=== PATIENT | female | born 1995 | race Caucasian/White ===

== ENCOUNTER 2016-10-28 22:36 | Emergency (ER) | payer BC, MEDICAID ==
[2016-10-29] MEDS ORDERED: NORMAL SALINE 1000 ML 1,000 ML IV ONE (01:35)
[2016-10-29] MEDS ORDERED: ONDANSETRON HCL INJ/PF 4 MG/2 ML SDV IV ONE (01:35)
--- NOTE | 2016-10-29 01:37 | ER Document Report ---
ED GI/ - General Chief Complaint: Nausea/Vomiting Stated Complaint: VOMITING,FEVER Time Seen by Provider: 10/29/16 01:30 Notes: Patient is a 21-year-old female comes emergency department for chief complaint of generalized abdominal pain and about 5 episodes of vomiting. She denies fever, flank pain, she had a normal bowel movement yesterday, she denies any sick contacts, suspicious foods, or recent antibiotics. She denies any surgeries. LMP within the past 2 weeks. She denies dysuria, vaginal discharge. No obvious sick contacts. No daily medications. TRAVEL OUTSIDE OF THE [place] IN LAST 30 DAYS: No - Related Data Allergies/Adverse Reactions: No Known Allergies Allergy (Verified 01/09/15 17:39) Past Medical History - General Information source: Patient - Social History Smoking Status: Never Smoker Frequency of alcohol use: None Drug Abuse: None Lives with: Family Family History: Arthritis, CAD, DM, Hyperlipidemia, Hypertension, Thyroid Disfunction. denies: CVA, Malignancy Patient has suicidal ideation: No Patient has homicidal ideation: No - Medical History Medical History: Negative Renal/ Medical History: Denies: Hx Peritoneal Dialysis Musculoskeltal Medical History: Reports Hx Arthritis, Reports Hx Musculoskeletal Deformity, Reports Hx Musculoskeletal Trauma - facial bone Skin Medical History: Reports Hx Eczema Traumatic Medical History: Reports: Hx Fractures - facial bone Surgical Hx: Negative - Immunizations Immunizations up to date: Yes Hx Diphtheria, Pertussis, Tetanus Vaccination: Yes - 2007 Review of Systems - Review of Systems Constitutional: No symptoms reported EENT: No symptoms reported Cardiovascular: No symptoms reported Respiratory: No symptoms reported Gastrointestinal: See HPI Genitourinary: No symptoms reported Female Genitourinary: No symptoms reported Musculoskeletal: No symptoms reported Skin: No symptoms reported Hematologic/Lymphatic: No symptoms reported Neurological/Psychological: No symptoms reported Physical Exam - Vital signs Vitals: Temp Pulse Resp BP Pulse Ox 99.7 F 87 18 134/76 H 98 10/28/16 22:38 10/28/16 22:38 10/28/16 22:38 10/28/16 22:38 10/28/16 22:38 Interpretation: Normal - General General appearance: Appears well, Alert In distress: None - Patient alert and well-appearing on examination - HEENT Head: Normocephalic, Atraumatic Eyes: Normal Pupils: PERRL - Respiratory Respiratory status: No respiratory distress Chest status: Nontender Breath sounds: Normal Chest palpation: Normal - Cardiovascular Rhythm: Regular Heart sounds: Normal auscultation Murmur: No - Abdominal Inspection: Normal Distension: No distension Bowel sounds: Normal Tenderness: Tender - Mild generalized abdominal tenderness, slightly worse in the left lower quadrant, however no guarding, rigidity, rebound tenderness. Organomegaly: No organomegaly - Back Back: Normal, Nontender. No: Tender, CVA tenderness - Extremities General upper extremity: Normal inspection, Nontender, Normal color, Normal ROM , Normal temperature General lower extremity: Normal inspection, Nontender, Normal color, Normal ROM , Normal temperature, Normal weight bearing. No: Russell's sign - Neurological Neuro grossly intact: Yes Cognition: Normal Orientation: AAOx4 [place] Coma Scale Eye Opening: Spontaneous [place] Coma Scale Verbal: Oriented [place] Coma Scale Motor: Obeys Commands [place] Coma Scale Total: 15 Speech: Normal Motor strength normal: LUE, RUE, LLE, RLE Sensory: Normal - Psychological Associated symptoms: Normal affect, Normal mood - Skin Skin Temperature: Warm Skin Moisture: Dry Skin Color: Normal Course - Re-evaluation Re-evalutation: Patient, benign abdominal exam, after IV fluids and Zofran patient denied any symptoms and states she felt excellent. She states she wants to go home. CBC shows mild leukocytosis with no shift, chemistry unremarkable, urine unremarkable, hCG negative. Clinical picture is most consistent with a viral gastroenteritis, no evidence of acute abdomen at this time. Provided with Zofran, discussed return precautions in detail, patient states understanding and agreement - Vital Signs Vital signs: Temp Pulse Resp BP Pulse Ox 98.1 F 88 16 111/54 L 100 10/29/16 04:18 10/29/16 04:18 10/29/16 04:18 10/29/16 04:18 10/29/16 04:18 - Laboratory Result Diagrams: 10/29/16 02:00 10/29/16 02:00 Laboratory results interpreted by me: 10/29/16 10/29/16 10/29/16 02:00 02:00 02:00 WBC 10.8 H BUN 6 L Urine Urobilinogen 4.0 H Discharge - Discharge Clinical Impression: Nausea and vomiting Qualifiers: Vomiting type: unspecified Vomiting Intractability: non-intractable Qualified Code(s): R11.2 - Nausea with vomiting, unspecified Condition: Stable Disposition: HOME, SELF-CARE Additional Instructions: Workup, examination, and symptoms are nonspecific, no concerning abnormalities are found, this is probably viral and should resolve on its own. Take the nausea medication as prescribed, start with bland food, consider Pepcid or similar medication [id number] to help settle stomach. Follow-up with primary care. Return to emergency department for any concerning or worsening symptoms including under controlled vomiting, fever, severe abdominal pain, or any other concerning symptoms. Prescriptions: Ondansetron [Zofran Odt 4 mg Tablet] 1 - 2 tab PO Q4H PRN #20 tab.rapdis PRN Reason: For Nausea/Vomiting Forms: Return to Work
[2016-10-29 02:19] LABS: ABSOLUTE EOSINOPHILS # (AUTO) 0.2 10^3/uL (0.0-0.6); ABSOLUTE MONOCYTES (AUTO) 0.9 10^3/uL (0.1-1.4); ABSOLUTE NEUT (AUTO) 7.7 10^3/uL (1.7-8.2); BASOPHILS % (AUTO) 0.3 % (0-2); EOSINOPHILS % (AUTO) 1.4 % (0-6); HEMATOCRIT 41.6 % (36.0-47.0); HGB HCT DIFFERENCE 0.4; LYMPHOCYTES % (AUTO) 18.8 % (13-45); MEAN CORPUSCULAR HGB CONC 33.6 g/dL (32.0-36.0); MEAN CORPUSCULAR VOLUME 86 fl (80-97); MONOCYTES % (AUTO) 8.5 % (3-13); RED BLOOD COUNT 4.81 10^6/uL (3.72-5.28); RED CELL DISTRIBUTION WIDTH 13.2 % (11.5-14.0); WHITE BLOOD COUNT 10.8 10^3/uL (4.0-10.5)
[2016-10-29 02:22] LABS: APPEARANCE,URINE CLEAR; BILIRUBIN,URINE NEGATIVE (NEGATIVE); GLUCOSE, URINE NEGATIVE (NEGATIVE); KETONES,URINE NEGATIVE (NEGATIVE); LEUKOCYTE ESTERASE,URINE NEGATIVE (NEGATIVE); NITRITE,URINE NEGATIVE (NEGATIVE); PROTEIN,URINE NEGATIVE (NEGATIVE); URINE SPECIFIC GRAVITY 1.013
[2016-10-29 02:25] LABS: ALANINE AMINOTRANSFERASE 33 U/L (9-52); ALBUMIN 4.5 g/dL (3.5-5.0); ALKALINE PHOSPHATASE 96 U/L (38-126); ANION GAP 12 (5-19); ASPARTATE AMINO TRANSFERASE 18 U/L (14-36); BILIRUBIN,DIRECT 0.3 mg/dL (0.0-0.4); BILIRUBIN,TOTAL 0.5 mg/dL (0.2-1.3); BLOOD UREA NITROGEN 6 mg/dL (7-20); CALCIUM 9.6 mg/dL (8.4-10.2); CARBON DIOXIDE 25 mmol/L (22-30); CHLORIDE 103 mmol/L (98-107); CREATININE RESULT 0.62 mg/dL (0.52-1.25); GLUCOSE 98 mg/dL (75-110); LIPASE 35.1 U/L (23-300); POTASSIUM 4.1 mmol/L (3.6-5.0); TOTAL PROTEIN 8.1 g/dL (6.3-8.2)
[2016-10-29] MEDS ORDERED: ONDANSETRON ODT 4 MG TAB (6 TAB/DSPK) PO PRN (04:14)
[2016-10-29 04:29] VITALS: BP 111/54
== END 2016-10-29 04:31 | disposition home or self-care (01) ==
LOC: ER 22:36
DX: R11.2 Nausea with vomiting, unspecified (principal); R10.84 Generalized abdominal pain
CPT/HCPCS: 99283; 96361; 96374; 36415; 83690; 85025; 81025; 80053; 81001; J2405; J7030

== ENCOUNTER 2016-12-18 10:54 | Emergency (ER) | payer OTHER, BC ==
--- NOTE | 2016-12-18 11:37 | ER Document Report ---
HPI - HPI Patient complains to provider of: right foot injury Pain Level: 5 Context: Patient is a 21-year-old female comes emergency department for chief complaint of right foot pain. 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 She has fractured the same foot in the past. She denies any other injuries. - REPRODUCTIVE LMP: November 20 Reproductive: DENIES: : - DERM Skin Color: Normal Past Medical History - General Information source: Patient - Social History Smoking Status: Never Smoker Frequency of alcohol use: None Drug Abuse: None Lives with: Family Family History: Arthritis, CAD, DM, Hyperlipidemia, Hypertension, Thyroid Disfunction. denies: CVA, Malignancy Renal/ Medical History: Denies: Hx Peritoneal Dialysis Musculoskeltal Medical History: Reports Hx Arthritis, Reports Hx Musculoskeletal Deformity, Reports Hx Musculoskeletal Trauma - facial bone Skin Medical History: Reports Hx Eczema Traumatic Medical History: Reports: Hx Fractures - facial bone - Immunizations Immunizations up to date: Yes Hx Diphtheria, Pertussis, Tetanus Vaccination: Yes - 2007 Vertical Provider Document - CONSTITUTIONAL General Appearance: WD/WN, No Apparent Distress - INFECTION CONTROL TRAVEL OUTSIDE OF THE [place] IN LAST 30 DAYS: No - HEENT HEENT: Atraumatic, Normocephalic - NECK Neck: Normal Inspection - RESPIRATORY Respiratory: Breath Sounds Normal, No Respiratory Distress O2 Sat by Pulse Oximetry: 99 - CARDIOVASCULAR Cardiovascular: Regular Rate, Regular Rhythm - GI/ABDOMEN Gastrointestinal: Abdomen Soft, Abdomen Non-Tender - BACK Back: Normal Inspection - MUSCULOSKELETAL/EXTREMETIES Musculoskeletal/Extremeties: Tender - Patient tender to the dorsal aspect of the mid right foot. No swelling or ecchymosis noted. Ankle, leg, knee exam unremarkable. Normal capillary refill and sensation. Normal range of motion of the toes and ankle. Course - Vital Signs Vital signs: Temp Pulse Resp BP Pulse Ox 98.3 F 64 14 127/57 H 99 12/18/16 11:01 12/18/16 11:01 12/18/16 11:01 12/18/16 11:01 12/18/16 11:01 - Diagnostic Test Radiology reviewed: Image reviewed, Reports reviewed Discharge - Discharge Clinical Impression: Right foot injury Qualifiers: Encounter type: initial encounter Qualified Code(s): S99.921A - Unspecified injury of right foot, initial encounter Condition: Stable Disposition: HOME, SELF-CARE Additional Instructions: Examination is consistent with soft tissue injury, no fractures are seen. I recommend using the crutches over the next 1-2 days, elevate your foot, apply ice to the area 3-4 times a day for 10-15 minutes, and to take the anti- inflammatory ibuprofen. Follow-up with primary care. Return to the emergency department for any concerning symptoms including severe swelling. Prescriptions: Ibuprofen [Motrin 600 mg Tablet] 600 mg PO Q6HP PRN #24 tablet PRN Reason: Forms: Return to Work
--- NOTE | 2016-12-18 12:17 | RADIOLOGY REPORT (SQ) ---
EXAM DESCRIPTION: FOOT RIGHT COMPLETE COMPLETED DATE/TIME: 12/18/2016 11:58 am REASON FOR STUDY: dropped plates on foot, pain COMPARISON: 12/06/2015 NUMBER OF VIEWS: Three views. TECHNIQUE: AP, lateral and oblique radiographic images acquired of the right foot. LIMITATIONS: None. FINDINGS: MINERALIZATION: Normal. BONES: No acute fracture or dislocation. No worrisome bone lesions. JOINTS: No effusions. SOFT TISSUES: No soft tissue swelling. No foreign body. OTHER: No other significant finding. IMPRESSION: NO RADIOGRAPHIC EVIDENCE OF ACUTE INJURY. NO SIGNIFICANT CHANGE FROM PRIOR STUDY. TECHNICAL DOCUMENTATION: JOB ID: [id number] [employer]- All Rights Reserved
[2016-12-18 12:38] VITALS: BP 116/67
== END 2016-12-18 12:38 | disposition home or self-care (01) ==
LOC: ER 10:54
DX: S99.921A Unspecified injury of right foot, initial encounter (principal); W20.8XXA Other cause of strike by thrown, projected or falling object, initial encounter
CPT/HCPCS: 99283

== ENCOUNTER 2017-12-04 18:10 | Emergency (ER) | payer BC, OTHER ==
[2017-12-04 18:21] VITALS: BP 120/57
[2017-12-04] MEDS ORDERED: FAMOTIDINE 20 MG TABLET PO ONE (19:25)
[2017-12-04] MEDS ORDERED: DIPHENHYDRAMINE HCL 25 MG CAPSULE PO ONE (19:25)
[2017-12-04] MEDS ORDERED: PREDNISONE 20 MG TABLET PO ONE (19:25)
--- NOTE | 2017-12-04 19:26 | ER Document Report ---
HPI - HPI Patient complains to provider of: Hives, eyelid swelling Onset: Other - 5 PM Onset/Duration: Persistent Quality of pain: Burning Pain Level: 4 Context: Patient states that she did wear new eye makeup today. Patient reports that around 5 PM she developed bilateral eyelid burning and swelling. Patient states she then developed hives to her body. Patient did take Benadryl tablet when symptoms started and states that the hives have since resolved although she continues to have eyelid burning and swelling. Patient denies any difficulty breathing or swallowing. Associated Symptoms: Other - Swelling, skin rash Exacerbated by: Denies Relieved by: Denies Similar symptoms previously: No Recently seen / treated by doctor: No - ROS ROS below otherwise negative: Yes Systems Reviewed and Negative: Yes All other systems reviewed and negative - CONSTITUTIONAL Constitutional: DENIES: Fever, Chills - EENT EENT: REPORTS: Eye problems - CARDIOVASCULAR Cardiovascular: DENIES: Chest pain - RESPIRATORY Respiratory: DENIES: Trouble Breathing, Coughing - GASTROINTESTINAL Gastrointestinal: DENIES: Nausea, Patient vomiting - REPRODUCTIVE Reproductive: DENIES: : Past Medical History - General Information source: Patient - Social History Smoking Status: Former Smoker Chew tobacco use (# tins/day): No Frequency of alcohol use: None Drug Abuse: None Occupation: [employer] Lives with: Family Family History: Arthritis, CAD, DM, Hyperlipidemia, Hypertension, Thyroid Disfunction. denies: CVA, Malignancy Patient has suicidal ideation: No Patient has homicidal ideation: No Renal/ Medical History: Denies: Hx Peritoneal Dialysis Musculoskeletal Medical History: Reports Hx Arthritis, Reports Hx Musculoskeletal Deformity, Reports Hx Musculoskeletal Trauma - facial bone Skin Medical History: Reports Hx Eczema Traumatic Medical History: Reports: Hx Fractures - facial bone Surgical Hx: Negative - Immunizations Immunizations up to date: Yes Hx Diphtheria, Pertussis, Tetanus Vaccination: Yes - 2008 Vertical Provider Document - CONSTITUTIONAL Agree With Documented VS: Yes Exam Limitations: No Limitations General Appearance: WD/WN, No Apparent Distress - INFECTION CONTROL TRAVEL OUTSIDE OF THE [place] IN LAST 30 DAYS: No - HEENT HEENT: Atraumatic, Normocephalic Notes: Swelling, mild erythema to bilateral upper eyelids, no angioedema, no potential airway compromise - NECK Neck: Normal Inspection, Supple. negative: Lymphadenopathy-Left, Lymphadenopathy-Right - RESPIRATORY Respiratory: Breath Sounds Normal, No Respiratory Distress - CARDIOVASCULAR Cardiovascular: Regular Rate, Regular Rhythm - BACK Back: Normal Inspection - MUSCULOSKELETAL/EXTREMETIES Musculoskeletal/Extremeties: BETTINA FROM - NEURO Level of Consciousness: Awake, Alert, Appropriate Motor/Sensory: No Motor Deficit - DERM Integumentary: Warm, Dry Course - Re-evaluation Re-evalutation: 12/04/17 20:22 Patient's periorbital edema improving, no additional rash or swelling noted. No angioedema, patient states she is feeling better. - Vital Signs Vital signs: Temp Pulse Resp BP Pulse Ox 97.8 F 74 20 120/57 L 95 12/04/17 18:20 12/04/17 18:20 12/04/17 18:20 12/04/17 18:20 12/04/17 18:20 Discharge - Discharge Clinical Impression: Allergic reaction Qualifiers: Encounter type: initial encounter Qualified Code(s): T78.40XA - Allergy, unspecified, initial encounter Condition: Stable Disposition: HOME, SELF-CARE Additional Instructions: Return immediately for any new or worsening symptoms Followup with your primary care provider, call tomorrow to make a followup appointment ACUTE ALLERGIC REACTION: Your symptoms are due to an allergic reaction. Allergy can cause hives, swelling of the hands, feet, and face, hoarseness, and difficulty swallowing or breathing. It may be due to exposure to medication, animal dander, foods, infection, or insect bites. Medication is a common cause, even when prior use of this same medication caused no problems. Acute treatment may include adrenalin and antihistamines. Usually, the specific allergic agent can't be identified unless repeated episodes occur. Home treatment includes the following: (1) Stop any suspicious medications. This will be discussed with you. (2) Oral antihistamines for the next four to five days. Example, diphenhydramine (Benadryl) every four hours. (3) You may also use cimetidine (Tagamet), ranitidine (Zantac), or famotidine ( Pepcid) every four hours if diphenhydramine is not controlling itching and hives. (4) Avoid aspirin until the hives completely disappear. (5) Avoid hot baths or showers until the hives are completely gone. Call the doctor if faintness, difficulty swallowing, tightness in the chest , or wheezing occurs. STEROID MEDICATION: You have been given a medicine of the cortisone/steroid class. This medication is used to control inflammation or allergy. It is usually only given for a short period of time, until the acute process subsides. There are usually no side effects from short-term use of cortisone-like medications. Some persons feel an increased sense of well-being and are not sleepy at bedtime. Long-term use of cortisone medications is best avoided, unless required for a severe condition. If your condition does not remit, or relapses after the course of corticosteroid medication, you should consult your physician. ACID-SUPPRESSING MEDICATION: You have a prescription for medicine which reduces the stomach's secretion of acid. Examples include Zantac, Tagament, and Pepcid. These drugs are often used to allow healing of ulcers or esophagitis. They may be needed to prevent recurrence of ulcers in some patients, or to prevent damage from acid reflux in the esophagus. Take all medication as prescribed, even after the pain is gone. Regular antacids may be added as needed if you have symptoms while taking this medicine. These medications sometimes are prescribed for allergic reactions because they have anti-histaminic effects and relieve the rash and itching of the reaction. There are usually no side effects from this medication. But, in rare cases and particularly in the elderly, serious problems can occur. Contact your doctor if there is fever, rash, hallucinations, confusion, or unusual bruising. Contact your doctor at once if you develop lightheadedness, black or bloody stool, or bloody vomitus. ANTIHISTAMINES: An antihistamine has been given and/or prescribed to control your symptoms. Antihistamines are used for many reasons, including itching, watering eyes, runny nose, allergic swelling, hives, and insect stings. Antihistamines may cause drowsiness, especially with the first dose. Do not operate machinery or drive while under the effects of the medication. Other common side effects include dry mouth and eyes. In older persons, antihistamines can occasionally cause urinary retention, constipation, and trouble focusing the eyes. Do not combine the medication with alcohol, or with any other medication without talking to your doctor. USE OF DIPHENHYDRAMINE: The use of diphenhydramine (Benadryl) has been recommended to control allergic symptoms. The 25 mg strength is available over- the-counter, as well as the elixir. This antihistamine is used for many symptoms. It's useful for itching, watering eyes and nose, allergic swelling, hives, and insect stings. The medication can be repeated four times daily. Age Elixir (12.5 mg/tsp) 25 mg pill 2-3 yr 1/2 tsp 4-8 yr 1 tsp 9-14 yr 2 tsp one tab adult 1-2 tabs Antihistamines may cause drowsiness, especially with the first dose. Do not operate machinery or drive while under the effects of the medication. Do not combine the medication with alcohol, or with any other medication without talking to your doctor. FOLLOW-UP CARE: If you have been referred to a physician for follow-up care, call the physician s office for an appointment as you were instructed or within the next two days. If you experience worsening or a significant change in your symptoms, notify the physician immediately or return to the Emergency Department at any time for re-evaluation. Prescriptions: Famotidine [Pepcid 20 mg Tablet] 20 mg PO BID #12 tablet Prednisone [Deltasone 10 mg Tablet] 10 mg PO ASDIR PRN #21 tablet PRN Reason: Forms: Return to Work Referrals: [facility] [Provider Group] - Follow up as needed
== END 2017-12-04 20:35 | disposition home or self-care (01) ==
LOC: ER 18:10
DX: T78.40XA Allergy, unspecified, initial encounter (principal); R60.0 Localized edema; L53.9 Erythematous condition, unspecified; X58.XXXA Exposure to other specified factors, initial encounter; Z87.891 Personal history of nicotine dependence
CPT/HCPCS: 99283; J7512

== ENCOUNTER 2018-05-27 21:18 | Emergency (ER) | payer OTHER ==
[2018-05-27] MEDS ORDERED: KETOROLAC TROMETHAMINE 60 MG/2 ML SDV IM ONE (22:06)
[2018-05-27] MEDS ORDERED: LIDOCAINE 5% (700 MG) TRANSDERMAL ADH..PATCH TP ONE (22:06)
--- NOTE | 2018-05-27 22:49 | ER Document Report ---
HPI - HPI Time Seen by Provider: 05/27/18 22:00 Pain Level: 4 Notes: Patient is an otherwise healthy 23-year-old female who presents to the emergency department with low back pain. 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 She reports history of episodes of low back pain in the past. She denies any incontinence of bowels, urinary retention or saddle anesthesia. She ambulated into the emergency department with a steady gait. - CONSTITUTIONAL Constitutional: DENIES: Fever, Chills - REPRODUCTIVE LMP: 05/08 Reproductive: DENIES: : Past Medical History - General Information source: Patient - Social History Smoking Status: Never Smoker Chew tobacco use (# tins/day): No Frequency of alcohol use: Occasional Drug Abuse: None Family History: Arthritis, CAD, DM, Hyperlipidemia, Hypertension, Thyroid Disfunction. denies: CVA, Malignancy Patient has suicidal ideation: No Patient has homicidal ideation: No Renal/ Medical History: Denies: Hx Peritoneal Dialysis Musculoskeletal Medical History: Reports Hx Arthritis, Reports Hx Musculoskeletal Deformity, Reports Hx Musculoskeletal Trauma - facial bone Skin Medical History: Reports Hx Eczema Traumatic Medical History: Reports: Hx Fractures - facial bone Surgical Hx: Negative - Immunizations Immunizations up to date: Yes Hx Diphtheria, Pertussis, Tetanus Vaccination: Yes - 2008 [facility] Provider Document - CONSTITUTIONAL Notes: PHYSICAL EXAMINATION: GENERAL: Well-appearing, well-nourished and in no acute distress. HEAD: Atraumatic, normocephalic. EYES: Pupils equal round extraocular movements intact, conjunctiva are normal. ENT: Nares patent NECK: Normal range of motion LUNGS: No respiratory distress, lung sounds clear to auscultation bilaterally. Musculoskeletal: Normal range of motion, tenderness to palpation along the lumbar paraspinous muscles bilaterally, no vertebral tenderness, no step-off or deformity. No numbness or tingling to either lower extremity. NEUROLOGICAL: Normal speech, normal gait. PSYCH: Normal mood, normal affect. SKIN: Warm, Dry, normal turgor, no rashes or lesions noted. - INFECTION CONTROL TRAVEL OUTSIDE OF THE [place] IN LAST 30 DAYS: No Course - Re-evaluation Re-evalutation: Presentation of a well appearing patient complaining of acute on chronic back pain. Based on history and physical examination patient's back pain is most likely caused by musculoskeletal strain. Patient denies any red flag symptoms to include fever, bowel incontinence, urinary retention or saddle anesthesia. Patient will be given dose of IM Toradol as well as a lidocaine patch to be placed over the most tender area. Will reevaluate after administration of medications. Patient reports significant improvement of her symptoms after medications administered. Discussed red flag symptoms as well as ED return precautions. Patient instructed on back strengthening exercises that she can start on once her back pain resolves. Patient given work note for today and tomorrow. - Vital Signs Vital signs: Temp Pulse Resp BP Pulse Ox 98 F 77 14 128/59 H 99 05/27/18 21:41 05/27/18 21:41 05/27/18 21:41 05/27/18 21:41 05/27/18 21:41 Discharge - Discharge Clinical Impression: Back pain Qualifiers: Back pain location: low back pain Chronicity: acute Back pain laterality: midline Sciatica presence: unspecified whether sciatica present Qualified Code(s): M54.5 - Low back pain Condition: Stable Disposition: HOME, SELF-CARE Additional Instructions: You have been seen in the Emergency Department (ED) today for back pain. Your workup and exam have not shown any acute abnormalities and you are likely suffering from muscle strain or possible problems with your discs, but there is no treatment that will fix your symptoms at this time. Please take ibuprofen 600 mg every 6 hours for pain. You should also purchase a local lidocaine cream such as "aspercreme with lidocaine" and use per bottle instructions to the affected area. Apply heat to the area as often as you are able. Continue to keep active and avoid prolonged periods of bed rest. Please follow up with your doctor as soon as possible regarding today's ED visit and your back pain. Return to the ED for worsening back pain, fever, weakness or numbness of either leg, or if you develop either (1) an inability to urinate or have bowel movements, or (2) loss of your ability to control your bathroom functions (if you start having "accidents"), or if you develop other new symptoms that concern you.concern you. Forms: Return to Work
[2018-05-27 23:17] VITALS: BP 129/72
== END 2018-05-27 23:13 | disposition home or self-care (01) ==
LOC: ER 21:18
DX: M54.5 Low back pain (principal); X50.1XXA Overexertion from prolonged static or awkward postures, initial encounter; Y99.0 Civilian activity done for income or pay
CPT/HCPCS: 99283; 96372; J1885

== ENCOUNTER 2018-05-29 14:54 | Emergency (ER) | payer SELFPAY ==
[2018-05-29 15:04] VITALS: BP 120/66
[2018-05-29] MEDS ORDERED: OXYCODONE-ACETAMINOPHEN 5-325 MG TABLET PO ONE (15:47)
[2018-05-29] MEDS ORDERED: CYCLOBENZAPRINE HCL 10 MG TABLET PO ONE (15:48)
--- NOTE | 2018-05-29 15:50 | ER Document Report ---
HPI - HPI Patient complains to provider of: Low back pain Time Seen by Provider: 05/29/18 15:21 Onset/Duration: Persistent Quality of pain: Sharp Pain Level: 5 Context: Patient presents complaining of low back pain that radiates into her lower extremities. Patient states that she was here 2 days ago for this complaint and has been taking Motrin and using topical lidocaine cream without improvement of her symptoms. Patient states that this morning she had difficulty standing, although states that she is uncertain if this is due to her pain where she was having weakness. Patient states she has since been able to ambulate without difficulty. Patient denies any injury fever urinary retention or incontinence. Associated Symptoms: Other - Low back pain. denies: Fever Exacerbated by: Standing, Movement, Walking Relieved by: Denies Similar symptoms previously: Yes Recently seen / treated by doctor: Yes - ROS ROS below otherwise negative: Yes Systems Reviewed and Negative: Yes All other systems reviewed and negative - CONSTITUTIONAL Constitutional: DENIES: Fever, Chills - GASTROINTESTINAL Gastrointestinal: DENIES: Nausea, Patient vomiting - URINARY Urinary: DENIES: Dysuria, Urgency, Frequency - REPRODUCTIVE LMP: 05/08/18 Reproductive: DENIES: : - MUSCULOSKELETAL Musculoskeletal: REPORTS: Extremity pain, Back Pain - DERM Skin Color: Normal Skin Problems: None Past Medical History - General Information source: Patient - Social History Smoking Status: Never Smoker Chew tobacco use (# tins/day): No Drug Abuse: None Occupation: [employer] Lives with: Family Family History: Arthritis, CAD, DM, Hyperlipidemia, Hypertension, Thyroid Disfunction. denies: CVA, Malignancy Patient has suicidal ideation: No Patient has homicidal ideation: No Renal/ Medical History: Denies: Hx Peritoneal Dialysis Musculoskeletal Medical History: Reports Hx Arthritis, Reports Hx Musculoskeletal Deformity, Reports Hx Musculoskeletal Trauma - facial bone Skin Medical History: Reports Hx Eczema Traumatic Medical History: Reports: Hx Fractures - facial bone Surgical Hx: Negative - Immunizations Immunizations up to date: Yes Hx Diphtheria, Pertussis, Tetanus Vaccination: Yes - 2008 Vertical Provider Document - CONSTITUTIONAL Agree With Documented VS: Yes Exam Limitations: No Limitations General Appearance: WD/WN, No Apparent Distress Notes: PHYSICAL EXAMINATION: GENERAL: Well-appearing, morbidly obese and in no acute distress. HEAD: Atraumatic, normocephalic. EYES: sclera clear, anicteric, conjunctiva are normal. ENT: nares patent, Moist mucous membranes. NECK: Normal range of motion, supple no lymphadenopathy LUNGS: respirations unlabored HEART: Regular rate and rhythm without murmurs EXTREMITIES: Normal range of motion, no pitting or edema. No cyanosis. Gait normal, pt ambulates without difficulty BACK: Lumbar spinal tenderness, lumbar midline tenderness, no deformities or step-offs. No CVA tenderness. NEUROLOGICAL: Cranial nerves grossly intact. Normal speech, normal gait. No saddle anesthesia. Negative straight leg test bilaterally. Normal rectal tone PSYCH: Normal mood, normal affect. SKIN: Warm, Dry, normal turgor, no rashes or lesions noted. - INFECTION CONTROL TRAVEL OUTSIDE OF THE [place] IN LAST 30 DAYS: No Course - Re-evaluation Re-evalutation: 05/29/18 15:[address] Murray regarding patient presentation and exam findings. Recommend symptomatic treatment. No additional imaging advised at this time. The patient presents with low back pain without signs of spinal cord compression, cauda equina syndrome, infection, aneurysm, or other serious etiology. The patient is neurologically intact. Given the extremely risk of these diagnoses further testing and evaluation for these possibilities does not appear to be indicated at this time. Patient has been instructed to return if the symptoms worsen or change in any way. - Vital Signs Vital signs: Temp Pulse Resp BP Pulse Ox 98.3 F 81 18 120/66 98 05/29/18 15:03 05/29/18 15:03 05/29/18 15:03 05/29/18 15:03 05/29/18 15:03 Discharge - Discharge Clinical Impression: Low back pain Qualifiers: Chronicity: unspecified Back pain laterality: bilateral Sciatica presence: unsp ecified whether sciatica present Qualified Code(s): M54.5 - Low back pain Condition: Stable Disposition: HOME, SELF-CARE Instructions: Ice Packs ([facility]), Low Back Pain ([facility]), Muscle Relaxers ([facility]) Additional Instructions: Return immediately for any new or worsening symptoms Followup with your primary care provider, call tomorrow to make a followup appointment Follow-up with a spinal specialist for recheck Follow-up with pain management Prescriptions: Cyclobenzaprine HCl [Flexeril 10 Mg Tablet] 10 mg PO TID #15 tablet Naproxen [Naprosyn 250 Nmg Tablet] 1 tab PO BID #14 tablet Forms: Return to Work Referrals: [facility] [Provider Group] - Follow up as needed [facility] [Provider Group] - Follow up as needed [facility] [Provider Group] - Follow up as needed
== END 2018-05-29 16:04 | disposition home or self-care (01) ==
LOC: ER 14:54
DX: M54.5 Low back pain (principal); E66.01 Morbid (severe) obesity due to excess calories
CPT/HCPCS: 99283

== ENCOUNTER 2018-10-25 03:38 | Emergency (ER) | payer SELFPAY ==
[2018-10-25] MEDS ORDERED: MORPHINE SULFATE 10 MG/ML INJ IV ONE (04:01)
[2018-10-25] MEDS ORDERED: ONDANSETRON HCL INJ/PF 4 MG/2 ML SDV IV ONE (04:01)
[2018-10-25] MEDS ORDERED: NORMAL SALINE 1000 ML 1,000 ML IV ONE (04:01)
--- NOTE | 2018-10-25 04:08 | ER Document Report ---
ED GI/ - General Chief Complaint: Abdominal Pain Stated Complaint: ABDOMINAL PAIN/VOMITING Time Seen by Provider: 10/25/18 03:56 Notes: Patient is a 23-year-old female that comes to the emergency department for chief complaint of sharp pain in the upper abdomen, worse on the right side underneath the right breast. Pain does not radiate. She reports vomiting from the pain 4 times. Pain started tonight. She denies dysuria, lower abdominal pain, chest pain, difficulty breathing, fever/chills. She denies any surgeries, diagnosed medical problems, or daily medications. TRAVEL OUTSIDE OF THE [place] IN LAST 30 DAYS: No - Related Data Allergies/Adverse Reactions: No Known Allergies Allergy (Verified 05/29/18 14:56) Past Medical History - General Information source: Patient - Social History Smoking Status: Never Smoker Drug Abuse: None Lives with: Family Family History: Arthritis, CAD, DM, Hyperlipidemia, Hypertension, Thyroid Disfunction. denies: CVA, Malignancy Renal/ Medical History: Denies: Hx Peritoneal Dialysis Musculoskeletal Medical History: Reports Hx Arthritis, Reports Hx Musculoskeletal Deformity, Reports Hx Musculoskeletal Trauma - facial bone Skin Medical History: Reports Hx Eczema Traumatic Medical History: Reports: Hx Fractures - facial bone Surgical Hx: Negative - Immunizations Immunizations up to date: Yes Hx Diphtheria, Pertussis, Tetanus Vaccination: Yes - 2007 Review of Systems - Review of Systems Constitutional: No symptoms reported EENT: No symptoms reported Cardiovascular: No symptoms reported Respiratory: No symptoms reported Gastrointestinal: See HPI Genitourinary: No symptoms reported Female Genitourinary: No symptoms reported Musculoskeletal: No symptoms reported Skin: No symptoms reported Hematologic/Lymphatic: No symptoms reported Neurological/Psychological: No symptoms reported Physical Exam - Vital signs Vitals: Temp Pulse Resp BP Pulse Ox 97.7 F 81 19 123/62 100 10/25/18 03:41 10/25/18 03:41 10/25/18 03:41 10/25/18 03:41 10/25/18 03:41 - Notes Notes: GENERAL: Alert, interacts well. Patient appears mildly uncomfortable. HEAD: Normocephalic, atraumatic. EYES: Pupils equal, round, and reactive to light. Extraocular movements intact. ENT: Oral mucosa moist, tongue midline. Oropharynx unremarkable. Airway patent. Nares patent, no nasal septal hematoma, TM's intact. NECK: Full range of motion. Supple. Trachea midline. LUNGS: Clear to auscultation bilaterally, no wheezes, rales, or rhonchi. No respiratory distress. HEART: Regular rate and rhythm. No murmur ABDOMEN: Tender in the epigastric and right upper quadrant areas with wincing. Remaining abdomen is unremarkable. Non-distended. Bowel sounds present in all 4 quadrants. GENITOURINARY: Deferred EXTREMITIES: Moves all 4 extremities spontaneously. No edema, normal radial and dorsalis pedis pulses bilaterally. No cyanosis. BACK: no cervical, thoracic, lumbar midline tenderness. No saddle anesthesia, normal distal neurovascular exam. Moves all extremities in full range of motion. NEUROLOGICAL: Alert and oriented x3. Normal speech. Cranial nerves II through XII grossly intact. PSYCH: Normal affect, normal mood. SKIN: Warm, dry, normal turgor. No rashes or lesions noted. Course - Re-evaluation Re-evalutation: CBC unremarkable, chemistry unremarkable. Urinalysis shows hematuria but patient is currently on her menstrual cycle so I suspect a contaminant. She has no flank pain or CVA tenderness. She does have right upper quadrant and epigastric pain. Ultrasound showing cholelithiasis without evidence of cholecystitis or other concerning abnormality. On reevaluation patient is asymptomatic. Because of her significant improvement we discussed options. After discussion decision was made to treat her with as needed Toradol and nausea medication, discussed dietary precautions, surgical clinic follow-up, and return precautions in detail. Patient states understanding and agreement. - Vital Signs Vital signs: Temp Pulse Resp BP Pulse Ox 97.7 F 81 19 123/62 100 10/25/18 03:41 10/25/18 03:41 10/25/18 03:41 10/25/18 03:41 10/25/18 03:41 - Laboratory Result Diagrams: 10/25/18 04:00 10/25/18 04:00 Laboratory results interpreted by me: 10/25/18 04:12 Urine Protein 30 H Urine Blood LARGE H Discharge - Discharge Clinical Impression: RUQ abdominal pain Cholelithiasis Qualifiers: Cholelithiasis location: gallbladder Cholecystitis presence: without cholecystitis Biliary obstruction: without biliary obstruction Qualified Code(s): K80.20 - Calculus of gallbladder without cholecystitis without o bstruction Vomiting Qualifiers: Vomiting type: unspecified Vomiting Intractability: non-intractable Nausea pre sence: with nausea Qualified Code(s): R11.2 - Nausea with vomiting, unspecified Condition: Stable Disposition: HOME, SELF-CARE Additional Instructions: You have gallstones. This is most likely the cause of your symptoms tonight. I recommend that you avoid fatty or greasy foods, take the Toradol if needed for pain, take Phenergan if needed for nausea, and follow-up with the surgical clinic for additional management (scheduling removal of your gallbladder). Come back if you worsen including returned or severe pain, uncontrolled vomiting, fever/chills, or any other concerning or worsening symptoms. Prescriptions: Ketorolac Tromethamine [Toradol 10 mg Tablet] 10 mg PO Q8HP PRN #24 tablet PRN Reason: Promethazine HCl [Phenergan 25 mg Tablet] 25 mg PO Q6H PRN #20 tablet PRN Reason: Forms: Return to Work, Treatment of Relative/Child Referrals: [facility] [Provider Group] - Follow up as needed
[2018-10-25 04:17] LABS: ABSOLUTE BASOPHILS # (AUTO) 0.1 10^3/uL (0.0-0.2); ABSOLUTE EOSINOPHILS # (AUTO) 0.2 10^3/uL (0.0-0.6); ABSOLUTE LYMPHOCYTES (AUTO) 2.4 10^3/uL (0.5-4.7); ABSOLUTE MONOCYTES (AUTO) 0.8 10^3/uL (0.1-1.4); ABSOLUTE NEUT (AUTO) 5.4 10^3/uL (1.7-8.2); BASOPHILS % (AUTO) 0.9 % (0-2); EOSINOPHILS % (AUTO) 2.2 % (0-6); HEMATOCRIT 39.9 % (36.0-47.0); HEMOGLOBIN 13.7 g/dL (12.0-15.5); LYMPHOCYTES % (AUTO) 27.4 % (13-45); MEAN CORPUSCULAR HGB CONC 34.3 g/dL (32.0-36.0); MEAN CORPUSCULAR VOLUME 85 fl (80-97); MONOCYTES % (AUTO) 8.8 % (3-13); PLATELET COUNT 219 10^3/uL (150-450); RED BLOOD COUNT 4.71 10^6/uL (3.72-5.28); RED CELL DISTRIBUTION WIDTH 12.8 % (11.5-14.0); SEGMENTED NEUTROPHILS % (AUTO) 60.7 % (42-78); TOTAL CELLS COUNTED % (AUTO) 100 %; WHITE BLOOD COUNT 8.8 10^3/uL (4.0-10.5)
[2018-10-25 04:35] LABS: ALANINE AMINOTRANSFERASE 23 U/L (9-52); ALBUMIN 4.7 g/dL (3.5-5.0); ALKALINE PHOSPHATASE 82 U/L (38-126); ANION GAP 10 (5-19); ASPARTATE AMINO TRANSFERASE 18 U/L (14-36); BILIRUBIN,DIRECT 0.2 mg/dL (0.0-0.4); BILIRUBIN,TOTAL 0.2 mg/dL (0.2-1.3); BLOOD UREA NITROGEN 11 mg/dL (7-20); CALCIUM 9.8 mg/dL (8.4-10.2); CARBON DIOXIDE 26 mmol/L (22-30); CHLORIDE 105 mmol/L (98-107); GLUCOSE 94 mg/dL (75-110); LIPASE 55.1 U/L (23-300); SODIUM 140.9 mmol/L (137-145); TOTAL PROTEIN 7.8 g/dL (6.3-8.2)
[2018-10-25 04:42] LABS: APPEARANCE,URINE CLOUDY; BILIRUBIN,URINE NEGATIVE (NEGATIVE); COLOR,URINE YELLOW; GLUCOSE, URINE NEGATIVE (NEGATIVE); KETONES,URINE NEGATIVE (NEGATIVE); LEUKOCYTE ESTERASE,URINE NEGATIVE (NEGATIVE); NITRITE,URINE NEGATIVE (NEGATIVE); PROTEIN,URINE 30 mg/dL (NEGATIVE); URINE SPECIFIC GRAVITY 1.023; UROBILINOGEN,URINE NEGATIVE mg/dL (<2.0)
--- NOTE | 2018-10-25 05:21 | RADIOLOGY REPORT (SQ) ---
EXAM DESCRIPTION: US ABDOMEN LIMITED COMPLETED DATE/TME: 10/25/2018 04:01 CLINICAL HISTORY: 23 years, Female, RUQ pain COMPARISON: None. TECHNIQUE: Limited right upper quadrant ultrasound LIMITATIONS: None. FINDINGS: The liver is echogenic consistent with fatty infiltrative change. The pancreas, abdominal aorta, inferior vena cava, right kidney are unremarkable. There is no ascites. Multiple gallstones in the gallbladder lumen. Negative sonographic Huffman sign. No gallbladder wall thickening. No pericholecystic fluid. CBD measures 2.1 mm. IMPRESSION: Fatty liver. Cholelithiasis. No sonographic evidence for cholecystitis copyright 2010 [employer]- All Rights Reserved
[2018-10-25 05:41] VITALS: BP 121/91
== END 2018-10-25 05:41 | disposition home or self-care (01) ==
LOC: ER 03:38
DX: K80.20 Calculus of gallbladder without cholecystitis without obstruction (principal); R10.11 Right upper quadrant pain; R11.2 Nausea with vomiting, unspecified; R10.13 Epigastric pain; R10.816 Epigastric abdominal tenderness; R10.811 Right upper quadrant abdominal tenderness
CPT/HCPCS: 99284; 96361; 96374; 96375; 36415; 83690; 84703; 85025; 80053; 81001; 76705; J2270; J2405; J7030

== ENCOUNTER 2018-10-26 17:29 | Observation (INO) | payer SELFPAY ==
[2018-10-26] MEDS ORDERED: GLYCOPYRROLATE 1 MG/5 ML VIAL ONE (18:19)
[2018-10-26] MEDS ORDERED: ONDANSETRON HCL INJ/PF 4 MG/2 ML SDV ONE (18:19)
[2018-10-26] MEDS ORDERED: KETOROLAC TROMETHAMINE 60 MG/2 ML SDV ONE (18:19)
[2018-10-26] MEDS ORDERED: ROCURONIUM BROMIDE INJ 50 MG/5 ML VIAL IV ONE (18:19)
[2018-10-26] MEDS ORDERED: NEOSTIGMINE METHYLSULFATE 10 MG/10 ML VIAL ONE (18:19)
[2018-10-26] MEDS ORDERED: LIDOCAINE 2% INJ-PF (20 MG/ML) 2 ML AMPUL ONE (18:19)
[2018-10-26] MEDS ORDERED: DEXAMETHASONE SOD PHOSPHATE INJ 4 MG/1 ML VIAL ONE (18:19)
[2018-10-26] MEDS ORDERED: ONDANSETRON HCL INJ/PF 4 MG/2 ML SDV IV ONE (20:25)
[2018-10-26] MEDS ORDERED: NORMAL SALINE 1000 ML 1,000 ML IV ONE (20:25)
[2018-10-26] MEDS ORDERED: KETOROLAC TROMETHAMINE INJ/PF 30 MG/1 ML SDV IV ONE (20:25)
--- NOTE | 2018-10-26 20:26 | ER Document Report ---
ED Medical Screen (RME) - General Chief Complaint: Abdominal Pain Stated Complaint: STOMACH PAIN Time Seen by Provider: 10/26/18 20:24 Notes: 23-year-old female with a recently diagnosed history of gallstones, seen recently by me, states she was doing well but then after she went home she started having pain, she vomited after eating this morning, she has had frequent pain throughout the day. As result she returns. She denies fever/chills. TRAVEL OUTSIDE OF THE [place] IN LAST 30 DAYS: No - Related Data Allergies/Adverse Reactions: No Known Allergies Allergy (Verified 10/26/18 17:30) Past Medical History Renal/ Medical History: Denies: Hx Peritoneal Dialysis Musculoskeltal Medical History: Reports Hx Arthritis, Reports Hx Musculoskeletal Deformity, Reports Hx Musculoskeletal Trauma - facial bone Skin Medical History: Reports Hx Eczema Traumatic Medical History: Reports: Hx Fractures - facial bone - Immunizations Immunizations up to date: Yes Hx Diphtheria, Pertussis, Tetanus Vaccination: Yes - 2007 Physical Exam - Vital signs Vitals: Temp Pulse Resp BP Pulse Ox 98.7 F 81 16 129/70 H 98 10/26/18 17:54 10/26/18 17:54 10/26/18 17:54 10/26/18 17:54 10/26/18 17:54 - Abdominal Tenderness: Tender - Epigastric/right upper quadrant pain Course - Re-evaluation Re-evalutation: I have greeted and performed a rapid initial assessment of this patient. A comprehensive ED assessment and evaluation of the patient, analysis of test results and completion of the medical decision making process will be conducted by additional ED providers. - Vital Signs Vital signs: Temp Pulse Resp BP Pulse Ox 98.7 F 81 16 129/70 H 98 10/26/18 17:54 10/26/18 17:54 10/26/18 17:54 10/26/18 17:54 10/26/18 17:54
[2018-10-26 20:49] LABS: ABSOLUTE BASOPHILS # (AUTO) 0.1 10^3/uL (0.0-0.2); ABSOLUTE EOSINOPHILS # (AUTO) 0.1 10^3/uL (0.0-0.6); ABSOLUTE LYMPHOCYTES (AUTO) 2.2 10^3/uL (0.5-4.7); ABSOLUTE MONOCYTES (AUTO) 0.5 10^3/uL (0.1-1.4); ABSOLUTE NEUT (AUTO) 5.8 10^3/uL (1.7-8.2); BASOPHILS % (AUTO) 0.7 % (0-2); EOSINOPHILS % (AUTO) 1.3 % (0-6); HEMATOCRIT 41.8 % (36.0-47.0); HEMOGLOBIN 14.4 g/dL (12.0-15.5); LYMPHOCYTES % (AUTO) 25.6 % (13-45); MEAN CORPUSCULAR HEMOGLOBIN 29.3 pg (27.0-33.4); MEAN CORPUSCULAR HGB CONC 34.4 g/dL (32.0-36.0); MEAN CORPUSCULAR VOLUME 85 fl (80-97); MONOCYTES % (AUTO) 6.1 % (3-13); PLATELET COUNT 254 10^3/uL (150-450); RED BLOOD COUNT 4.91 10^6/uL (3.72-5.28); RED CELL DISTRIBUTION WIDTH 13.1 % (11.5-14.0); SEGMENTED NEUTROPHILS % (AUTO) 66.3 % (42-78); TOTAL CELLS COUNTED % (AUTO) 100 %; WHITE BLOOD COUNT 8.7 10^3/uL (4.0-10.5)
[2018-10-26 21:08] LABS: ALANINE AMINOTRANSFERASE 22 U/L (9-52); ALBUMIN 4.9 g/dL (3.5-5.0); ALKALINE PHOSPHATASE 71 U/L (38-126); ANION GAP 9 (5-19); ASPARTATE AMINO TRANSFERASE 22 U/L (14-36); BILIRUBIN,DIRECT 0.3 mg/dL (0.0-0.4); BILIRUBIN,TOTAL 0.5 mg/dL (0.2-1.3); BLOOD UREA NITROGEN 12 mg/dL (7-20); CARBON DIOXIDE 28 mmol/L (22-30); CHLORIDE 105 mmol/L (98-107); GLUCOSE 91 mg/dL (75-110); LIPASE 30.5 U/L (23-300); POTASSIUM 4.1 mmol/L (3.6-5.0); SODIUM 141.8 mmol/L (137-145); TOTAL PROTEIN 8.8 g/dL (6.3-8.2)
[2018-10-26 21:33] LABS: APPEARANCE,URINE SLIGHTLY-CLOUDY; BILIRUBIN,URINE NEGATIVE (NEGATIVE); COLOR,URINE YELLOW; GLUCOSE, URINE NEGATIVE (NEGATIVE); KETONES,URINE NEGATIVE (NEGATIVE); LEUKOCYTE ESTERASE,URINE NEGATIVE (NEGATIVE); NITRITE,URINE NEGATIVE (NEGATIVE); PROTEIN,URINE NEGATIVE (NEGATIVE); URINE SPECIFIC GRAVITY 1.024; UROBILINOGEN,URINE NEGATIVE mg/dL (<2.0)
--- NOTE | 2018-10-26 21:52 | RADIOLOGY REPORT (SQ) ---
EXAM DESCRIPTION: [facility]: US ABDOMEN LIMITED COMPLETED: 10/26/2018 20:24 CLINICAL HISTORY: 23 years Female; worsening pain, vomiting, hx gallstones TECHNIQUE: Right upper quadrant ultrasound was performed. COMPARISON: Ultrasound 10/25/2018 FINDINGS: Pancreas: Could not be fully visualized due to artifact. Visualized portions are unremarkable. Liver: 14 cm long, slightly echogenic. Portal venous flow is hepatopedal, normal. Gallbladder: Numerous calculi, as on yesterday's exam. There is also some sludge. No Huffman sign. Wall is maximum 5 mm, although most of the wall is normal thickness. No pericholecystic edema. Common bile duct: 6 mm. Right kidney: 13.5 cm long. No hydronephrosis. IMPRESSION: 1. Cholelithiasis, but no objective sonographic evidence for acute cholecystitis.
[2018-10-26] MEDS ORDERED: RINGERS SOLUTION,LACTATED 1,000 ML IV ONE (22:29)
--- NOTE | 2018-10-26 22:30 | ER Document Report ---
ED General - General Chief Complaint: Abdominal Pain Stated Complaint: STOMACH PAIN Time Seen by Provider: 10/26/18 20:24 Notes: Patient is a pleasant 21-year-old female who presents with complaint of right upper quadrant dental pain and vomiting. She had it intermittently now for a while however yesterday it became severe and she cannot hold anything down. She was seen here in the ER and had a work-up for gallbladder showing multiple gal lstones. Decide to try outpatient therapy. Despite medications she is continued to have pain and vomiting is been unable to hold down any food or water and therefore is come back to the ER. Pain at times has been intractable. Patient has received some pain medicine here as well as nausea medicine. She says it has helped. She says she still does not like she can hold down liquids or food. She denies any fevers. No past medical problems. She is not taking medications. She is otherwise healthy. TRAVEL OUTSIDE OF THE [place] IN LAST 30 DAYS: No - Related Data Allergies/Adverse Reactions: No Known Allergies Allergy (Verified 10/26/18 17:30) Past Medical History - Social History Smoking Status: Never Smoker Frequency of alcohol use: None Drug Abuse: None Family History: Arthritis, CAD, DM, Hyperlipidemia, Hypertension, Thyroid Disfunction. denies: CVA, Malignancy Renal/ Medical History: Denies: Hx Peritoneal Dialysis Musculoskeletal Medical History: Reports Hx Arthritis, Reports Hx Musculoskeletal Deformity, Reports Hx Musculoskeletal Trauma - facial bone Skin Medical History: Reports Hx Eczema Traumatic Medical History: Reports: Hx Fractures - facial bone - Immunizations Immunizations up to date: Yes Hx Diphtheria, Pertussis, Tetanus Vaccination: Yes - 2007 Review of Systems - Review of Systems Notes: My Normal Review Basic REVIEW OF SYSTEMS: CONSTITUTIONAL : Denies fever, chills, or sweats. Denies recent illness. EENT: Denies eye, ear, throat, or mouth pain or symptoms. Denies nasal or sinus congestion. RESPIRATORY: Denies cough, cold, or chest congestion. Denies shortness of breath, difficulty breathing, or wheezing. GASTROINTESTINAL: Right upper quadrant abdominal pain. Vomiting. GENITOURINARY: Denies difficulty urinating, painful urination, burning, frequency, or blood in urine. MUSCULOSKELETAL: Denies neck or back pain or joint pain or swelling. SKIN: Denies rash or skin lesions. NEUROLOGICAL: Denies altered mental status or loss of consciousness. ALL OTHER SYSTEMS REVIEWED AND NEGATIVE. Physical Exam - Vital signs Vitals: Temp Pulse Resp BP Pulse Ox 98.7 F 81 16 129/70 H 98 10/26/18 17:54 10/26/18 17:54 10/26/18 17:54 10/26/18 17:54 10/26/18 17:54 - Notes Notes: General Appearance: Well nourished, alert, cooperative, no acute distress, mild obvious discomfort. Vitals: reviewed, See vital signs table. Head: no swelling or tenderness to the head Eyes: PERRL, EOMI, Conjuctiva clear Mouth: No decreasd moisture Lungs: No wheezing, No rales, No rhonci, No accessory muscle use, good air exchange bilaterally. Heart: Normal rate, Regular rythm, No murmur, no rub Abdomen: Normal BS, soft, No rigidity, moderate right upper quadrant abdominal tenderness to palpation, some guarding, no rebound, no abdominal masses, no organomegaly Extremities: good pulses in all extremities, no swelling or tenderness in the extremities, no edema. Skin: warm, dry, appropriate color, no rash Neuro: speech clear, oriented x 3, normal affect, responds appropriately to que stions. Course - Re-evaluation Re-evalutation: 10/26/18 22:35 Due to the patient's intractable pain and vomiting over the last 24 hours despite medication therapy feels appropriate to bring her in for possible cholecystectomy. I did speak with the surgeon, Dr. Traore, who agrees to come evaluate the patient. Dictation of this chart was performed using voice recognition software; therefore, there may be some unintended grammatical errors. - Vital Signs Vital signs: Temp Pulse Resp BP Pulse Ox 98.7 F 81 16 129/70 H 98 10/26/18 17:54 10/26/18 17:54 10/26/18 17:54 10/26/18 17:54 10/26/18 17:54 - Laboratory Result Diagrams: 10/26/18 20:33 10/26/18 20:33 Laboratory results interpreted by me: 10/26/18 10/26/18 20:33 21:11 Total Protein 8.8 H Urine Blood MODERATE H Discharge - Discharge Clinical Impression: Cholelithiasis Qualifiers: Cholelithiasis location: gallbladder Cholecystitis presence: without cholecystitis Biliary obstruction: without biliary obstruction Qualified Code(s): K80.20 - Calculus of gallbladder without cholecystitis without obstruction Vomiting Qualifiers: Vomiting type: unspecified Vomiting Intractability: intractable Nausea presence: with nausea Qualified Code(s): R11.2 - Nausea with vomiting, unspecified Condition: Stable Disposition: ADMITTED INPATIENT Admitting Provider: Surgicalist Unit Admitted: Surgical Floor
[2018-10-26] MEDS ORDERED: ONDANSETRON 4 MG TAB.RAPDIS PO PRN (23:02)
[2018-10-26] MEDS ORDERED: DEXTROSE 40% GEL 15 GM TUBE PO PRN ×2 (23:02)
[2018-10-26] MEDS ORDERED: GLUCAGON,HUMAN RECOMB 1 MG INJ SUBCUT PRN (23:02)
[2018-10-26] MEDS ORDERED: DEXTROSE 50%-WATER 25 GM/50 ML DISP.SYRIN IV PRN ×2 (23:02)
[2018-10-26] MEDS ORDERED: NORMAL SALINE 1000 ML 1,000 ML IV PRN (23:02)
--- NOTE | 2018-10-26 23:16 | PDOC H&P ---
History of Present Illness Admission Date/PCP: 10/26/18 22:34 Patient complains of: Subcostal abdominal pain History of Present Illness: SHARLA BERRIOS is a 23 year old female presents with 2-day history of right subcostal abdominal pain along with nausea and vomiting. No fever no diarrhea. No jaundice. Patient has suffered from similar attacks albeit much less severe over the past several months. This particular episode has been severe and persistent. She had been seen in the emergency department yesterday and was discharged when her pain was relieved after pain medication. But soon after going home the pain recurred and has been persistent since. Past Medical History Medical History: None Musculoskeltal Medical History: Reports: Arthritis Musculoskeletal History Note: Chronic lower back pain. Skin Medical History: Reports: Eczema Social History Smoking Status: Never Smoker Family History Family History: Arthritis, CAD, DM, Hyperlipidemia, Hypertension, Thyroid Disfunction. denies: CVA, Malignancy Parental Family History Reviewed: Yes Children Family History Reviewed: Yes Sibling(s) Family History Reviewed.: Yes Medication/Allergy Home Medications: Ibuprofen [Motrin 600 mg Tablet] 800 mg PO Q8HP PRN 07/03/14 Triamcinolone Acetonide [Aristocort 0.5% Cream 15 gm] 1 applic TP QID #2 tube 01/09/15 Hydrocodone/Acetaminophen [Barnard 5-325 mg Tablet] 1 tab PO Q6HP PRN #14 tablet 12/06/15 Ondansetron [Zofran Odt 4 mg Tablet] 1 - 2 tab PO Q4H PRN #20 tab.rapdis 10/29/16 Ibuprofen [Motrin 600 mg Tablet] 600 mg PO Q6HP PRN #24 tablet 12/18/16 Famotidine [Pepcid 20 mg Tablet] 20 mg PO BID #12 tablet 12/04/17 Prednisone [Deltasone 10 mg Tablet] 10 mg PO ASDIR PRN #21 tablet 12/04/17 Cyclobenzaprine HCl [Flexeril 10 Mg Tablet] 10 mg PO TID #15 tablet 05/29/18 Naproxen [Naprosyn 250 Nmg Tablet] 1 tab PO BID #14 tablet 05/29/18 Ketorolac Tromethamine [Toradol 10 mg Tablet] 10 mg PO Q8HP PRN #24 tablet 10/25/18 Promethazine HCl [Phenergan 25 mg Tablet] 25 mg PO Q6H PRN #20 tablet 10/25/18 Allergies/Adverse Reactions: No Known Allergies Allergy (Verified 10/26/18 17:30) Review of Systems All systems: reviewed and no additional remarkable complaints except as stated Gastrointestinal: PRESENT: as per HPI Musculoskeletal: PRESENT: back pain Physical Exam Vital Signs: Temp Pulse Resp BP Pulse Ox 98.7 F 81 16 129/70 H 98 10/26/18 17:54 10/26/18 17:54 10/26/18 17:54 10/26/18 17:54 10/26/18 17:54 Intake & Output 10/25/18 10/26/18 10/27/18 06:59 06:59 06:59 Weight 118.7 kg General appearance: PRESENT: no acute distress, cooperative Eye exam: PRESENT: conjunctiva pink Neck exam: PRESENT: other - Supple with no masses and no tenderness Respiratory exam: PRESENT: clear to auscultation yoseph Cardiovascular exam: PRESENT: RRR GI/Abdominal exam: PRESENT: other - Soft, nondistended, tender in the right upper quadrant but no peritoneal signs. Extremities exam: PRESENT: other - No swelling. Results Laboratory Results: 10/26/18 20:33 10/26/18 20:33 10/26/18 10/26/18 10/26/18 20:33 20:33 21:11 WBC 8.7 RBC 4.91 Hgb 14.4 Hct 41.8 MCV 85 MCH 29.3 MCHC 34.4 RDW 13.1 Plt Count 254 Seg Neutrophils % 66.3 Lymphocytes % 25.6 Monocytes % 6.1 Eosinophils % 1.3 Basophils % 0.7 Absolute Neutrophils 5.8 Absolute Lymphocytes 2.2 Absolute Monocytes 0.5 Absolute Eosinophils 0.1 Absolute Basophils 0.1 Sodium 141.8 Potassium 4.1 Chloride 105 Carbon Dioxide 28 Anion Gap 9 BUN 12 Creatinine 0.71 Est GFR ( Amer) > 60 Est GFR (Non-Af Amer) > 60 Glucose 91 Calcium 10.0 Total Bilirubin 0.5 AST 22 ALT 22 Alkaline Phosphatase 71 Total Protein 8.8 H Albumin 4.9 Lipase 30.5 Urine Color YELLOW Urine Appearance SLIGHTLY-CLOUDY Urine pH 6.0 Ur Specific [place] 1.024 Urine Protein NEGATIVE Urine Glucose (UA) NEGATIVE Urine Ketones NEGATIVE Urine Blood MODERATE H Urine Nitrite NEGATIVE Ur Leukocyte Esterase NEGATIVE Urine RBC (Auto) 1 Impressions: Abdomen Ultrasound 10/26/18 20:24 IMPRESSION: 1. Cholelithiasis, but no objective sonographic evidence for acute cholecystitis. Assessment & Plan - Diagnosis (1) Cholecystitis, acute with cholelithiasis Qualifiers: Biliary obstruction: without biliary obstruction Qualified Code(s): K80.00 - Calculus of gallbladder with acute cholecystitis without obstruction Is this a current diagnosis for this admission?: Yes Plan: Although ultrasound failed to demonstrate evidence of cholecystitis, persistence of her symptoms along with tenderness indicate acute cholecystitis. Will admit the patient and place her on IV antibiotics and IV fluids and bowel rest. We will plan laparoscopic cholecystectomy in the morning. I have discussed with the patient the risk and benefits of the surgery including risk of bile duct injury, intestinal injury, bleeding, infection, possibility of conversion to an open procedure. Patient understands the nature of the procedure and the risks and agrees to proceed. She understands that the oncoming surgeon will be perf ormed the procedure tomorrow. Please note that although she has multiple medications listed by our computer system she is on none of these medications at this time.
[2018-10-26] MEDS ORDERED: AMPICILLIN SOD/SULBACTAM 3 GM VIAL IV PRN (23:21)
[2018-10-27] MEDS ORDERED: AMPICILLIN SODIUM/SULBACTAM NA 3 GM in NORMAL SALINE 100 ML IV SCH ×2
[2018-10-27] MEDS ORDERED: AMPICILLIN SOD/SULBACTAM 3 GM VIAL ONE (03:10)
[2018-10-27] MEDS ORDERED: PROPOFOL INJ 200 MG/20 ML VIAL IV ONE (10:18)
[2018-10-27] MEDS ORDERED: MIDAZOLAM 2 MG/2 ML INJ ONE (10:18)
[2018-10-27] MEDS ORDERED: FENTANYL CITRATE INJ/PF 250 MCG/5 ML AMPULE ONE (10:18)
[2018-10-27] MEDS ORDERED: BUPIVACAINE HCL 0.25% /EPINEPHRINE INJ/PF 30 ML SDV ONE (10:20)
[2018-10-27] MEDS ORDERED: PROMETHAZINE HCL INJ 25 MG/1 ML VIAL IV PRN ×2 (10:50)
[2018-10-27] MEDS ORDERED: DIPHENHYDRAMINE HCL 50 MG/ML VIAL IV PRN (10:50)
[2018-10-27] MEDS ORDERED: MORPHINE SULFATE 10 MG/ML INJ IV PRN (10:50)
[2018-10-27] MEDS ORDERED: OXYCODONE-ACETAMINOPHEN 5-325 MG TABLET PO PRN ×3 (10:50→12:32)
[2018-10-27] MEDS ORDERED: FENTANYL CITRATE INJ/PF 100 MCG/2 ML AMPUL IV PRN ×3 (10:50)
[2018-10-27] MEDS ORDERED: MEPERIDINE HCL/PF INJ 25 MG/1 ML DISP.SYRIN IV PRN (10:50)
[2018-10-27] MEDS ORDERED: HYDROMORPHONE HCL INJ/PF 2 MG/ML AMPULE ONE (12:09)
--- NOTE | 2018-10-27 12:18 | OPERATIVE REPORT E ---
Operative Report NAME: SHARLA BERRIOS : 1995 AGE: 23Y DATE OF SURGERY: 10/27/2018 ROOM: 530 PREOPERATIVE DIAGNOSES: 1. ACUTE CHOLECYSTITIS. 2. CHOLELITHIASIS. POSTOPERATIVE DIAGNOSES: 1. ACUTE CHOLECYSTITIS. 2. CHOLELITHIASIS. OPERATION: LAPAROSCOPIC CHOLECYSTECTOMY. SURGEON: JEMIMA LOFTON M.D. ANESTHESIA: General. INDICATION: This is a 23-year-old female complaining of right upper quadrant pains. Had an ultrasound of the gallbladder, which showed gallstones. The patient is tender in the right upper quadrant with slightly elevated white count. PROCEDURE: After adequate general anesthesia, the patient was placed in supine position and the abdomen prepped and draped in the usual sterile fashion. Appropriate timeout was then called. Next, an infraumbilical incision was made and the fascia identified and grasped with Raina clamps, and divided within the Raina clamps. The fascia was then inspected down into the peritoneal cavity, with no evidence of adhesions. A Luis trocar was then inserted through the fascia into the abdominal cavity, and CO2 insufflated and the balloon inflated. Three other cameras inserted and three trocars inserted through the 12 mm in the subxiphoid and two 5 mm in the right upper quadrant. The gallbladder was then identified, noted to be slightly thickened wall, but no evidence of adhesions. Next, the gallbladder was then grasped at the liver end and brought over the liver. The infundibulum was then grasped and the cystic duct dissected, and cystic artery also dissected after the angle of safety was identified. The cystic duct was then clipped 3 times proximally and 1 distally on the gallbladder side. Cystic duct was then divided. The cystic duct was noted to be relatively small. Next, the cystic artery was then clipped and the cystic artery divided and cauterized with harmonic mika just distal to the clip and close to the gallbladder. The gallbladder was then dissected off the liver bed with the use of harmonic mika. The gallbladder was then completely removed and placed in an Endobag and pulled out through the umbilical port. There was at least one large stone palpated in the gallbladder. The gallbladder was also noted to have a quite thickened wall. Next, hemostasis was noted in the liver bed, although a little oozing on the superior part of the liver dissection was noted. This was controlled with harmonic mika cautery. Surgicel was placed around the liver bed and at the area on the oozing site where the liver bleeding was noted, though controlled earlier with harmonic mika. Surgicel placed to make sure there is no more bleeding. All the trocars were removed and CO2 allowed to come out through the trocar sites. Fascial defect at the infraumbilical area was then closed with a [id number] suture using 0 Vicryl, and two stay sutures tied over the fascial defect for better closure. Next, anesthesia was infiltrated over the fascia and over the incision sites. All the skin incisions were then closed with running subcuticular 4-0 Vicryl undyed. Steri-Strips placed over the operative sites. The patient tolerated the procedure well. Needle, instrument and sponge count were all correct. Estimated blood loss was no more than 10 mL. The patient was then brought to the recovery room, extubated and in satisfactory condition. DICTATING PHYSICIAN: JEMIMA LOFTON M.D. [id number] Y#: [id number] ID: [id number] JOB#: [id number] ACCT: [id number] cc:JEMIMA LOFTON M.D. >
[2018-10-27] MEDS: FENTANYL CITRATE INJ/PF 100 MCG/2 ML AMPUL ONE ×2 (12:30→12:35)
[2018-10-27] MEDS ORDERED: ACETAMINOPHEN 1,000 MG/100 ML RTUPB IV ONE (12:35)
[2018-10-27] MEDS: AMPICILLIN SODIUM/SULBACTAM NA 3 GM in NORMAL SALINE 100 ML IV SCH ×3 (14:03→21:24)
[2018-10-27] MEDS: MORPHINE SULFATE 10 MG/ML INJ IV PRN ×2 (16:44→21:23)
[2018-10-28] MEDS: AMPICILLIN SODIUM/SULBACTAM NA 3 GM in NORMAL SALINE 100 ML IV SCH (06:16)
[2018-10-28] MEDS: MORPHINE SULFATE 10 MG/ML INJ IV PRN (06:41)
[2018-10-28 08:26] VITALS: BP 103/55
--- NOTE | 2018-10-28 11:10 | DISCHARGE SUMMARY E ---
Discharge Summary NAME: SHARLA BERRIOS : 1995 AGE: 23Y ADMITTED: 10/26/2018 DISCHARGED: 10/28/2018 FINAL DIAGNOSES: 1. Acute cholecystitis. 2. Cholelithiasis. PROCEDURE: On 10/27/2018, laparoscopic cholecystectomy. Surgeon: Nghia Power MD. HOSPITAL COURSE: This is 23-year-old female complaining of right upper quadrant pains, who went to the ED, where an ultrasound showed gallstones. She is markedly tender in the right upper quadrant. She then underwent laparoscopic cholecystectomy on 10/27/[address] Power. Postoperatively, she did very well and tolerated a regular diet on the day of discharge, on 10/28/2018. She was discharged on 10/28/2018 and given a prescription for Toradol 10 mg p.o. q.6 to 8 hours p.r.n. pain. She is advised not to do any heavy lifting more than 10 to 15 pounds for the next 2 weeks. She will be followed up in the surgical clinic in 2 weeks. DICTATING PHYSICIAN: NGHIA POWER M.D. [id number] PHY#: [id number] ID: [id number] JOB#: [id number] ACCT: [id number] cc:Kat LANCE MD, M.D. IVAN FRIANT, PA >
== END 2018-10-28 12:00 | disposition home or self-care (01) ==
LOC: ER 17:29 → INTOOBSV 22:34 → EH 22:34 → 5 23:48
PROVIDERS: ATTEND Surgery
PROC: 0FT44ZZ Resection of Gallbladder, Percutaneous Endoscopic Approach (ICD-10-PCS; principal; 2018-10-27 10:30)
DX: K80.12 Calculus of gallbladder with acute and chronic cholecystitis without obstruction (principal); L30.9 Dermatitis, unspecified; Z79.899 Other long term (current) drug therapy
CPT/HCPCS: 36415; 83690; 85025; 81025; 80053; 81001; 88304 ×2; 76705; 00790; 47562; J2250; J3490 ×4; J1100; J1885 ×2; J3010 ×2; J0295 ×2; J2270 ×2; J2710; J1170; J2405; J7050 ×2; J7030 ×2; J7120; J2704; J0131; 790; 96361; 96374; 96375; 99285; G0378

== ENCOUNTER 2019-03-08 12:26 | Emergency (ER) | payer OTHER ==
[2019-03-08 12:31] VITALS: BP 147/74
[2019-03-08] MEDS ORDERED: DIPHENHYDRAMINE HCL 50 MG/ML VIAL IV ONE (12:46)
[2019-03-08] MEDS ORDERED: METHYLPREDNISOLONE INJ 125 MG/2 ML SDV IV ONE (12:46)
[2019-03-08] MEDS ORDERED: FAMOTIDINE INJ/PF 20 MG/2 ML SDV IV ONE (12:46)
--- NOTE | 2019-03-08 12:51 | ER Document Report ---
ED Medical Screen (RME) - General Chief Complaint: Allergic Reaction Stated Complaint: POSSIBLE ALLERGIC REACTION Time Seen by Provider: 03/08/19 12:43 Mode of Arrival: Ambulatory Information source: Patient Notes: 24-year-old female presented to ED for complaint of pain and swelling to the left upper eyelid. There is no definite insect bite to the eyelid. She states she does have some shortness of breath and feels like her throat might be getting tight but there is no swelling to the tongue or the throat. There is no swelling to the lips. We will treat with Solu-Medrol Benadryl and Pepcid IV and monitor. I have greeted and performed a rapid initial assessment of this patient. A comprehensive ED assessment and evaluation of the patient, analysis of test results and completion of medical decision making process will be conducted by an additional ED providers. TRAVEL OUTSIDE OF THE [place] IN LAST 30 DAYS: No - Related Data Allergies/Adverse Reactions: No Known Allergies Allergy (Verified 03/08/19 12:44) Past Medical History Renal/ Medical History: Denies: Hx Peritoneal Dialysis Musculoskeltal Medical History: Reports Hx Arthritis, Reports Hx Musculoskeletal Deformity, Reports Hx Musculoskeletal Trauma - facial bone Skin Medical History: Reports Hx Eczema Traumatic Medical History: Reports: Hx Fractures - facial bone - Immunizations Immunizations up to date: Yes Hx Diphtheria, Pertussis, Tetanus Vaccination: Yes - 2007 Physical Exam - Vital signs Vitals: Temp Pulse Resp BP Pulse Ox 97.8 F 75 18 147/74 H 99 03/08/19 12:30 03/08/19 12:30 03/08/19 12:30 03/08/19 12:30 03/08/19 12:30 Course - Vital Signs Vital signs: Temp Pulse Resp BP Pulse Ox 97.8 F 75 18 147/74 H 99 03/08/19 12:30 03/08/19 12:30 03/08/19 12:30 03/08/19 12:30 03/08/19 12:30
--- NOTE | 2019-03-08 15:24 | ER Document Report ---
HPI - HPI Time Seen by Provider: 03/08/19 12:43 Pain Level: 4 Notes: 24-year-old female presented to ED for complaint of pain and swelling to the left upper eyelid. She received site Medrol, Benadryl, Pepcid IV in triage, patient was held in triage for approximately 2.5 hours in which her eye swelling decreased, patient states that she felt like she had some anxiety this morning due to swelling of her eyes, she was unsure if this was related to eye swelling or she is having allergic reaction. Patient came into room from his provider to examine, she does not have any eye swelling, airway patent. Patient states that she does have a history of serious allergic reactions, has not been seen by an nurse orthopaedic to determine the etiology of her allergic reactions. Patient does not have a primary care provider emergency room insurance so she has not followed up on this matter. Denies fevers, chills, chest pain,palpitations, shortness of breath, dyspnea, nausea, vomiting, diarrhea, abdominal pain, hematuria,blurred vision, double vision, loss of vision, speech changes, LH, dizziness, syncope, headaches, wheezing, ST, URI, neck pain, weakness, bowel or bladder dysfunction, saddle anesthesia, numbness or tingling in bilateral upper or lower extremities equally, muscle paralysis, weakness in bilateral upper or lower extremities equally or rash. - REPRODUCTIVE LMP: 03/2019 Reproductive: DENIES: : Past Medical History - General Information source: Patient - Social History Smoking Status: Never Smoker Chew tobacco use (# tins/day): No Frequency of alcohol use: Occasional Drug Abuse: None Family History: Arthritis, CAD, DM, Hyperlipidemia, Hypertension, Thyroid Disfunction. denies: CVA, Malignancy Patient has suicidal ideation: No Patient has homicidal ideation: No Renal/ Medical History: Denies: Hx Peritoneal Dialysis Musculoskeletal Medical History: Reports Hx Arthritis, Reports Hx Musculoskeletal Deformity, Reports Hx Musculoskeletal Trauma - facial bone Skin Medical History: Reports Hx Eczema Traumatic Medical History: Reports: Hx Fractures - facial bone - Immunizations Immunizations up to date: Yes Hx Diphtheria, Pertussis, Tetanus Vaccination: Yes - 2007 [facility] Provider Document - CONSTITUTIONAL Agree With Documented VS: Yes Exam Limitations: No Limitations General Appearance: WD/WN Notes: PHYSICAL EXAMINATION: reviewed vital signs by RN GENERAL: Well-appearing, well-nourished and in no acute distress. HEAD: Atraumatic, normocephalic. EYES: Pupils equal round and reactive to light, extraocular movements intact, conjunctiva are normal. Left upper eyelid with scant erythema. visual acuity normal. ENT: Nares patent, oropharynx clear without exudates. Moist mucous membranes. Uvula midline. NECK: Normal range of motion, supple without lymphadenopathy LUNGS: Breath sounds clear to auscultation bilaterally and equal. No wheezes rales or rhonchi. HEART: Regular rate and rhythm without murmurs ABDOMEN: Soft, nontender, nondistended abdomen. No guarding, no rebound. No masses appreciated. Female : deferred Musculoskeletal: Normal range of motion, no pitting or edema. No cyanosis. NEUROLOGICAL: Cranial nerves grossly intact. Normal speech, normal gait. Normal sensory, motor exams PSYCH: Normal mood, normal affect. SKIN: Warm, Dry, normal turgor, no rashes or lesions noted. - INFECTION CONTROL TRAVEL OUTSIDE OF THE [place] IN LAST 30 DAYS: No Course - Re-evaluation Re-evalutation: 03/08/19 15:59 Afebrile vital stable no distress. Nurse's notes reviewed. patient was evaluated in triage, given Solu-Medrol, Benadryl, Pepcid IVP was held for approximately 2.5 hours before being sent over to this provider. This provider and Eugene Silvestre NP states that swelling has gone down dramatically nearly 95% to normal. Patient agrees pain, no complaints at this time. Vitals are stable. Patient presents with symptoms consistent with an allergic reaction without anaphylaxis. No respiratory, GI, cardiovascular, or oral pharyngeal symptoms. patient given course of prednisone outpatient, Benadryl, take as directed. at this time will discharge with return precautions and follow-up recommendations. Verbal discharge instructions given a the bedside and opportunity for questions given. Medication warnings reviewed. Patient is in agreement with this plan and has verbalized understanding of return precautions and the need for primary care follow-up in the next 24-72 hours. - Vital Signs Vital signs: Temp Pulse Resp BP Pulse Ox 97.8 F 75 18 147/74 H 99 03/08/19 12:30 03/08/19 12:30 03/08/19 12:30 03/08/19 12:30 03/08/19 12:30 Discharge - Discharge Clinical Impression: Allergic reaction Qualifiers: Encounter type: initial encounter Qualified Code(s): T78.40XA - Allergy, unspecified, initial encounter Condition: Stable Disposition: HOME, SELF-CARE Instructions: Acute Allergic Reaction ([facility]) Additional Instructions: Follow up with dispatcher automobile rental, call Tuesday to make followup appointment. [facility] Address: [address] [place] [address], [place] [address] Prescriptions: Diphenhydramine HCl [Benadryl Allergy] 2 tab PO Q6H #30 tablet Prednisone [Deltasone 20 mg Tablet] 3 tab PO DAILY 5 Days #15 tablet Forms: Return to Work Referrals: NEAL ORELLANA MD [ACTIVE STAFF] - Follow up as needed
== END 2019-03-08 15:58 | disposition home or self-care (01) ==
LOC: ER 12:26
DX: T78.40XA Allergy, unspecified, initial encounter (principal); R22.0 Localized swelling, mass and lump, head; L53.9 Erythematous condition, unspecified; X58.XXXA Exposure to other specified factors, initial encounter
CPT/HCPCS: 99283; 96374; 96375; J1200; J2930; S0028

== ENCOUNTER 2019-05-02 13:11 | Emergency (ER) | payer OTHER ==
[2019-05-02 13:17] VITALS: BP 136/83
--- NOTE | 2019-05-02 14:33 | ER Document Report ---
HPI - HPI Time Seen by Provider: 05/02/19 14:20 Context: 24-year-old healthy female presents the emergency department with chief complaint of embedded cactus hairs over her bilateral buttocks and hips. She fell into a cactus last night. Patient states that she removed several, her mother removed several, but there are some lingering and she wanted to seek treatment because she was afraid of secondary infection. Patient is ambulating without difficulty and she does have pain to touch over the area - REPRODUCTIVE Reproductive: DENIES: : Past Medical History - Social History Smoking Status: Unknown if Ever Smoked Family History: Arthritis, CAD, DM, Hyperlipidemia, Hypertension, Thyroid Disfunction. denies: CVA, Malignancy Renal/ Medical History: Denies: Hx Peritoneal Dialysis Musculoskeletal Medical History: Reports Hx Arthritis, Reports Hx Musculoskeletal Deformity, Reports Hx Musculoskeletal Trauma - facial bone Skin Medical History: Reports Hx Eczema Traumatic Medical History: Reports: Hx Fractures - facial bone - Immunizations Immunizations up to date: Yes Hx Diphtheria, Pertussis, Tetanus Vaccination: Yes - 2007 [employer] Provider Document - CONSTITUTIONAL Notes: PHYSICAL EXAMINATION: Reviewed vital signs and charting by RN GENERAL: Alert, interacts well. No acute distress. HEAD: Normocephalic, atraumatic. EYES: Pupils equal and round. Extraocular movements intact. ENT: Oral mucosa moist, tongue midline. NECK: Full range of motion. Trachea midline. LUNGS: Clear to auscultation bilaterally, no wheezes, rales, or rhonchi. No respiratory distress. HEART: Regular rate and rhythm. No murmur ABDOMEN: soft, non-tender. No distention. Bowel sounds present EXTREMITIES: Moves all 4 extremities spontaneously. Several scratches on her bilateral buttocks and hips, there are several areas where cactus areas are protruding, mild erythema PSYCH: Normal affect, normal mood. SKIN: Warm, dry, normal turgor. No rashes or lesions noted. - INFECTION CONTROL TRAVEL OUTSIDE OF THE [place] IN LAST 30 DAYS: No Course - Re-evaluation Re-evalutation: 05/02/19 14:35 Well-appearing in no acute distress, patient fell into a cactus and remove the majority of the hairs but here in the emergency department we removed as many as we could. No signs of superinfection at this time. Patient was given strict return precautions and warnings. She is stable for discharge. - Vital Signs Vital signs: Temp Pulse Resp BP Pulse Ox 97.6 F 99 16 136/83 H 99 05/02/19 13:15 05/02/19 13:15 05/02/19 13:15 05/02/19 13:15 05/02/19 13:15 Discharge - Discharge Clinical Impression: Foreign bdy hip/leg-inf Condition: Good Disposition: HOME, SELF-CARE Additional Instructions: You were seen for removal of cactus hairs. We may not have gotten the mall but they will fester out on their own. Just look out for signs of infection like fever, redness or abscess formation around the sites, or spreading redness. If these signs develop you may need to go on antibiotics but is not indicated at this time. Turn to the emergency department if you have any of these signs or symptoms.
== END 2019-05-02 14:55 | disposition home or self-care (01) ==
LOC: ER 13:11
DX: S70.252A Superficial foreign body, left hip, initial encounter (principal); S70.251A Superficial foreign body, right hip, initial encounter; S30.850A Superficial foreign body of lower back and pelvis, initial encounter; W60.XXXA Contact with nonvenomous plant thorns and spines and sharp leaves, initial encounter
CPT/HCPCS: 99283

== ENCOUNTER 2019-10-17 05:35 | Emergency (ER) | payer OTHER ==
--- NOTE | 2019-10-17 06:29 | ER Document Report ---
ED General - General Chief Complaint: Facial Swelling Stated Complaint: RIGHT SIDE FACIAL SWELLING Time Seen by Provider: 10/17/19 06:01 Notes: 24-year-old female with no pertinent past medical history reports with right- sided facial swelling starting this morning. States after dinner today her she brushed her teeth and her gums began to bleed and she noticed some right-sided jaw and cheek pain. She took ibuprofen which did not help alleviate her pain. She woke up early this morning and noticed that she had swelling and pain on her right side of her cheek and lower jaw. Pain is described as constant. Reports her mouth is dry. Reports a fever at home of 100.7. She has pain with opening her jaw. She notes that she had an episode of nausea and vomiting last night. Currently denies having any nausea and vomiting. Currently is afebrile. She denies any other symptoms to include chest pain, shortness of breath and abdominal pain. TRAVEL OUTSIDE OF THE [place] IN LAST 30 DAYS: No - Related Data Allergies/Adverse Reactions: No Known Allergies Allergy (Verified 03/08/19 12:44) Past Medical History - General Information source: Patient - Social History Smoking Status: Never Smoker Frequency of alcohol use: None Drug Abuse: None Family History: Arthritis, CAD, DM, Hyperlipidemia, Hypertension, Thyroid Disfunction. denies: CVA, Malignancy - Past Medical History Cardiac Medical History: Reports: None Pulmonary Medical History: Reports: None Neurological Medical History: Reports: None Endocrine Medical History: Reports: None Renal/ Medical History: Denies: Hx Peritoneal Dialysis Musculoskeletal Medical History: Reports Hx Arthritis, Reports Hx Musculoskeletal Deformity, Reports Hx Musculoskeletal Trauma - facial bone Skin Medical History: Reports Hx Eczema Traumatic Medical History: Reports: Hx Fractures - facial bone - Immunizations Immunizations up to date: Yes Hx Diphtheria, Pertussis, Tetanus Vaccination: Yes - 2007 Review of Systems - Review of Systems Constitutional: See HPI EENT: See HPI Cardiovascular: No symptoms reported Respiratory: No symptoms reported Gastrointestinal: No symptoms reported Genitourinary: No symptoms reported Musculoskeletal: No symptoms reported Physical Exam - Vital signs Vitals: Temp 98.5 F 10/17/19 05:35 Interpretation: Normal - General General appearance: Appears well Notes: Adult General: GENERAL: Alert, interacts well. No acute distress HEAD: Normocephalic, atraumatic EYES: Pupils equal, round and reactive to light. Extraocular movements intact. ENT: Right-sided facial swelling along lower cheek and submandibular area with associated tenderness. No warmth or erythema. No fluctuate mass palpated. No dental caries or fractures on teeth. No visible or palpable masses in her mouth. No visible stones. Parotid gland is nontender. Oral mucosa moist, tongue midline. Oropharynx unremarkable. Airway patent. Nares patent. NECK: Full range of motion. Supple. Trachea midline. No lymphadenopathy. GENITOURINARY: Deferred EXTREMITIES: Moves all 4 extremities spontaneously. No edema. No cyanosis. BACK: Moves all extremities with full range of motion. NEUROLOGICAL: Alert and oriented x3. Normal speech. PSYCH: Normal affect, normal mood. SKIN: Warm, dry, normal turgor. No rashes or lesions noted. Course - Re-evaluation Re-evalutation: 10/17/19 07:03 Based on patient's physical exam and symptoms, patient will be treated for sialoadenitis. Discussed this with the patient. I do not suspect patient has an abscess at this time. Discussed with patient treatment to include antibiotic use, increased hydration, anti-inflammatories and recommend the use of lemon lozenges. I discussed return precautions with the patient to include fever, chills, worsening symptoms or the development of new symptoms. Recommend also that the patient follow-up with her primary care provider as soon as possible to monitor for resolution of her symptoms. Patient acknowledges and verbalizes understanding of instructions and plan. - Vital Signs Vital signs: Temp Pulse Resp BP Pulse Ox 98.5 F 78 14 127/91 H 96 10/17/19 06:43 10/17/19 06:43 10/17/19 06:43 10/17/19 06:43 10/17/19 06:43 Discharge - Discharge Clinical Impression: Salivary duct obstruction Condition: Stable Disposition: HOME, SELF-CARE Additional Instructions: Please take antibiotics as prescribed. You may take Tylenol or ibuprofen to help alleviate inflammation of the pain. Recommend the use of lemon lozenges to help clear blockage. Also recommend drink plenty of water. Follow-up with your primary care as soon as possible. Follow-up with the emergency department if you have worsening symptoms or development of new symptoms. Prescriptions: Cephalexin Monohydrate [Keflex 500 mg Capsule] 500 mg PO Q12 7 Days #14 capsule Forms: Return to Work
[2019-10-17 06:46] VITALS: BP 127/91
== END 2019-10-17 06:46 | disposition home or self-care (01) ==
LOC: ER 05:35
DX: K11.8 Other diseases of salivary glands (principal); R22.0 Localized swelling, mass and lump, head
CPT/HCPCS: 99283

== ENCOUNTER 2019-10-17 15:52 | Emergency (ER) | payer OTHER ==
[2019-10-17] MEDS ORDERED: AMPICILLIN SOD/SULBACTAM 3 GM VIAL IV ONE (16:07)
--- NOTE | 2019-10-17 16:11 | ER Document Report ---
ED Medical Screen (RME) - General Chief Complaint: Facial Swelling Stated Complaint: FACIAL SWELLING SHORTNESS OF BREATH Time Seen by Provider: 10/17/19 16:04 Notes: Patient is a 24-year-old female who presents to the emergency department with a chief complaint of right lower jaw swelling and shortness of breath. Patient was seen here last night in the emergency department and was placed on antibiotics. Patient states that the swelling has gotten worse. States that it feels like her throat is closing. Exam: Swelling noted to right lower jaw. Able to see oropharynx, but significant swelling to right side of mouth. I have greeted and performed a rapid initial assessment of this patient. A comprehensive ED assessment and evaluation of the patient, analysis of test results and completion of medical decision making process will be conducted by an additional ED providers. TRAVEL OUTSIDE OF THE [place] IN LAST 30 DAYS: No - Related Data Allergies/Adverse Reactions: No Known Allergies Allergy (Verified 10/17/19 16:00) Past Medical History Renal/ Medical History: Denies: Hx Peritoneal Dialysis Musculoskeltal Medical History: Reports Hx Arthritis, Reports Hx Musculoskeletal Deformity, Reports Hx Musculoskeletal Trauma - facial bone Skin Medical History: Reports Hx Eczema Traumatic Medical History: Reports: Hx Fractures - facial bone - Immunizations Immunizations up to date: Yes Hx Diphtheria, Pertussis, Tetanus Vaccination: Yes - 2007
[2019-10-17 16:38] LABS: ABSOLUTE BASOPHILS # (AUTO) 0.1 10^3/uL (0.0-0.2); ABSOLUTE EOSINOPHILS # (AUTO) 0.1 10^3/uL (0.0-0.6); ABSOLUTE LYMPHOCYTES (AUTO) 1.1 10^3/uL (0.5-4.7); ABSOLUTE MONOCYTES (AUTO) 0.9 10^3/uL (0.1-1.4); BASOPHILS % (AUTO) 0.7 % (0-2); EOSINOPHILS % (AUTO) 0.7 % (0-6); HEMATOCRIT 41.5 % (36.0-47.0); HEMOGLOBIN 14.2 g/dL (12.0-15.5); MEAN CORPUSCULAR HEMOGLOBIN 29.9 pg (27.0-33.4); MEAN CORPUSCULAR HGB CONC 34.2 g/dL (32.0-36.0); MEAN CORPUSCULAR VOLUME 88 fl (80-97); MONOCYTES % (AUTO) 8.5 % (3-13); PLATELET COUNT 228 10^3/uL (150-450); RED BLOOD COUNT 4.74 10^6/uL (3.72-5.28); RED CELL DISTRIBUTION WIDTH 12.9 % (11.5-14.0); SEGMENTED NEUTROPHILS % (AUTO) 79.1 % (42-78); TOTAL CELLS COUNTED % (AUTO) 100 %; WHITE BLOOD COUNT 10.1 10^3/uL (4.0-10.5)
[2019-10-17 16:59] LABS: ANION GAP 9 (5-19); BLOOD UREA NITROGEN 6 mg/dL (7-20); CALCIUM 9.9 mg/dL (8.4-10.2); CARBON DIOXIDE 25 mmol/L (22-30); CHLORIDE 103 mmol/L (98-107); GLUCOSE 106 mg/dL (75-110); POTASSIUM 4.2 mmol/L (3.6-5.0)
[2019-10-17] MEDS ORDERED: KETOROLAC TROMETHAMINE INJ/PF 30 MG/1 ML SDV IV ONE (17:06)
[2019-10-17] MEDS ORDERED: CLINDAMYCIN 600 MG/D5W RTU 600 MG/50 ML RTUPB IV ONE (17:06)
--- NOTE | 2019-10-17 17:19 | ER Document Report ---
Entered by ESTRELLITA DELANEY SCRIBE 10/17/19 [id number] Acting as scribe for:VON NORTON MD ED Oral Problem - General Chief Complaint: Facial Swelling Stated Complaint: FACIAL SWELLING SHORTNESS OF BREATH Time Seen by Provider: 10/17/19 16:04 Mode of Arrival: Ambulatory Information source: Patient Notes: This 24 year old female patient presents to the emergency department today with complaints of continued right sided facial swelling and pain. Patient was seen here early this morning for the same symptoms. This morning the patient stated that after she ate dinner she brushed her teeth and her gums began to bleed. Patient states she has been told in the past that she brushes aggressively. TRAVEL OUTSIDE OF THE [place] IN LAST 30 DAYS: No - Related Data Allergies/Adverse Reactions: No Known Allergies Allergy (Verified 10/17/19 16:00) Past Medical History - General Information source: Patient - Social History Smoking Status: Never Smoker Cigarette use (# per day): No Chew tobacco use (# tins/day): No Frequency of alcohol use: None Drug Abuse: None Lives with: Family Family History: Arthritis, CAD, DM, Hyperlipidemia, Hypertension, Thyroid Disfunction Patient has homicidal ideation: No Musculoskeletal Medical History: Reports Hx Arthritis, Reports Hx Musculoskeletal Deformity, Reports Hx Musculoskeletal Trauma - facial bone Skin Medical History: Reports Hx Eczema Traumatic Medical History: Reports: Hx Fractures - facial bone Surgical Hx: Negative - Immunizations Immunizations up to date: Yes Hx Diphtheria, Pertussis, Tetanus Vaccination: Yes - 2007 Review of Systems - Review of Systems Constitutional: No symptoms reported EENT: See HPI, Mouth pain, Mouth swelling, Dental problem Cardiovascular: No symptoms reported Respiratory: No symptoms reported Gastrointestinal: No symptoms reported Genitourinary: No symptoms reported Female Genitourinary: No symptoms reported Musculoskeletal: No symptoms reported Skin: No symptoms reported Hematologic/Lymphatic: No symptoms reported Neurological/Psychological: No symptoms reported -: Yes All other systems reviewed and negative Physical Exam - Vital signs Vitals: Temp Pulse Resp BP Pulse Ox 99.1 F 97 20 125/78 100 10/17/19 15:58 10/17/19 15:58 10/17/19 15:58 10/17/19 15:58 10/17/19 15:58 - General General appearance: Appears well, Alert In distress: None - HEENT Head: Normocephalic, Atraumatic Eyes: Normal Pupils: PERRL Pharynx: Normal Neck: Normal Notes: Right face is very swollen over the mid mandible region. There is minimal erythema, it is very tender to palpate. Floor the mouth does not show any swelling. Teeth appear in good repair. The lateral gum region over the premolars and molars on the right lower side has an inflamed discolored appearance and is very tender to palpate. The remainder of the gum tissue throughout the mouth is normal-appearing and not tender. - Respiratory Respiratory status: No respiratory distress - Cardiovascular Rhythm: Regular - Abdominal Inspection: Normal - Back Back: Normal - Extremities General upper extremity: Normal inspection General lower extremity: Normal inspection - Neurological Neuro grossly intact: Yes - Psychological Associated symptoms: Normal affect, Normal mood - Skin Skin Temperature: Warm Skin Moisture: Dry Skin Color: Normal Course - Re-evaluation Re-evalutation: 10/17/19 19:20 The patient is feeling better. The swelling seems to have reduced some and she states it is not as painful at this time. - Vital Signs Vital signs: Temp Pulse Resp BP Pulse Ox 99.1 F 97 20 125/78 100 10/17/19 16:00 10/17/19 15:58 10/17/19 15:58 10/17/19 15:58 10/17/19 15:58 - Laboratory Result Diagrams: 10/17/19 16:23 10/17/19 16:23 Laboratory results interpreted by me: 10/17/19 10/17/19 16:23 16:23 Lymph % (Auto) 11.0 L Seg Neutrophils % 79.1 H Sodium 136.7 L BUN 6 L - Diagnostic Test Radiology reviewed: Image reviewed, Reports reviewed - Contrast CT scan of the soft tissues of the neck shows soft tissue swelling adjacent to the mandible on the right without fluid collections, and without dental abscesses. Discharge - Discharge Clinical Impression: Facial cellulitis, Gingivitis Condition: Stable Disposition: HOME, SELF-CARE Additional Instructions: Cellulitis You have an infection of your skin and underlying soft tissues called cellulitis. This is due to bacteria, which can enter through any break in the skin, or even through an irritated hair follicle. Untreated, cellulitis will usually worsen. Antibiotics are required. Usually, warm packs or warm soaks, and elevation of the infected area are recommended. You should start getting better within 24 to 36 hours. Most infections respond quickly to the right medication. Follow-up care is important, however, to check for abscess (boil) formation, unsuspected foreign body, or resistant infection. If you develop fever, chills, or if the area of infection is becoming r apidly more swollen or painful, call the doctor at once. You appear to have a cellulitis to the right face tissues overlying the mandible on the right side. This appears to be caused by gingivitis on the outside below the premolars and molars. Use warm soaks to the jaw to improve blood flow. Take the antibiotics as prescribed. Take ibuprofen every 6-8 hours for pain and inflammation. Take the pain medication as dispensed tonight if needed. Follow-up with your dentist Tuesday for recheck. RETURN TO THE EMERGENCY ROOM IF ANY NEW OR WORSENING SYMPTOMS. Prescriptions: Clindamycin HCl 300 mg PO QID #28 capsule I personally performed the services described in the documentation, reviewed and edited the documentation which was dictated to the scribe in my presence, and it accurately records my words and actions.
--- NOTE | 2019-10-17 17:56 | RADIOLOGY REPORT (SQ) ---
EXAM DESCRIPTION: CT SOFT TISSUE NECK WITH IMAGES COMPLETED DATE/TIME: 10/17/2019 5:01 pm REASON FOR STUDY: right lower facial swelling COMPARISON: None. TECHNIQUE: Post IV contrasted scanning from skull base through lung apices with review of bone, soft tissue and lung windows. Reconstructed coronal and sagittal MPR images reviewed. All images stored on PACS. All CT scanners at this facility use dose modulation, iterative reconstruction, and/or weight based d osing when appropriate to reduce radiation dose to as low as reasonably achievable (ALARA). [facility]: Dose Right [facility]: CareDose [facility]: Dose Right [facility]: Teradose 4D [facility]: AGNITiO CONTRAST TYPE AND DOSE: 74 cc Omnipaque 350- low osmolar. RENAL FUNCTION: None required. The patient is less than 50 years old. RADIATION DOSE: CT Rad equipment meets quality standard of care and radiation dose reduction techniq ues were employed. CTDIvol: 19.0 mGy. DLP: 620 mGy-cm. . LIMITATIONS: None. FINDINGS: SKULL BASE: Intact. MAJOR SALIVARY GLANDS: No solid or cystic masses. No inflammatory changes. LYMPHADENOPATHY: No adenopathy. MUCOSAL MASSES OR ASYMMETRY: No mucosal masses or asymmetry. LARYNX/CORDS: No abnormal findings. VASCULAR STRUCTURES: The major vessels are patent. LUNG APICES: Clear. BONES: Intact. THYROID: Normal size. No masses. PARANASAL SINUSES: Clear. OTHER: There is para mandibular soft tissue swelling on the right. No fluid collection is appreciate d. IMPRESSION: There is soft tissue swelling adjacent to the mandible on the right. No dental abscess is appreciated. Etiology is uncertain. TECHNICAL DOCUMENTATION: JOB ID: [id number] Quality ID # [id number]: Final reports with documentation of one or more dose reduction techniques (e.g., Au tomated exposure control, adjustment of the mA and/or kV according to patient size, use of iterative reconstruction technique) 2010 [email or web address]- All Rights Reserved Reading location - IP/workstation name: [email or web address]
[2019-10-17] MEDS ORDERED: FAMOTIDINE INJ/PF 20 MG/2 ML SDV IV ONE (18:05)
[2019-10-17] MEDS ORDERED: HYDROCODONE/ACETAMINOPHEN 5-325 MG (6 TAB/ER DISP) PO PRN (19:20)
[2019-10-17 19:49] VITALS: BP 125/64
== END 2019-10-17 19:49 | disposition home or self-care (01) ==
LOC: ER 15:52
DX: L03.211 Cellulitis of face (principal); K05.10 Chronic gingivitis, plaque induced; R06.02 Shortness of breath; R51 Headache
CPT/HCPCS: 99284; 96375; 96365; 96366; 36415; 87040; 85025; 80048; 70491; J1885; S0028